=== PATIENT | male | born 1990 | race Caucasian/White ===

== ENCOUNTER 2017-05-10 07:45 | Inpatient (IN) | payer BC, OTHER ==
[~2017-05-10] VITALS: Ht 185.4 cm; Wt 89.4 kg
--- NOTE | 2017-05-10 20:55 | NUR ---
PRE - ADMISSION NOTE: Patient is a 26 year old male AOX4, presented to [facility] to detoxify from ETOH/Alcohol and Methamphetamine dependence. Patient appears anxious, nervous, tremors to touch with flushed face. Patient is cooperative, speech is clear and audible. Patient reports NKA. Patient's vital signs are as follows: BP 122/76, HR 88, T: 97.8, RA SPO2 97%., pain level "0/10". Patient denies any pain at this time. Patient instructed on unit protocol of vitals Q4H and COWS/CIWA assessments. Patient verbalized understanding and agreement. Patient also instructed on policy regarding destruction of any controlled substances/prescriptions brought to facility, and handling of all medications. Patient verbalized understanding and agreement. Will complete admission assessment when patient is brought up to unit.
[2017-05-10] MEDS ORDERED: MIRALAX 17 GM POWD.PACK PO PRN (21:00)
[2017-05-10] MEDS ORDERED: LOPERAMIDE HCL 2 MG CAPSULE PO PRN ×2 (21:00)
[2017-05-10] MEDS ORDERED: THIAMINE HCL 200 MG/2 ML VIAL IM ONE (21:00)
[2017-05-10] MEDS ORDERED: NICOTINE 14 MG/24HR PATCH TD PRN (21:00)
[2017-05-10] MEDS ORDERED: ACETAMINOPHEN 325 MG TABLET PO PRN (21:00)
[2017-05-10] MEDS ORDERED: LORAZEPAM 1 MG TABLET PO PRN ×2 (21:00)
[2017-05-10] MEDS ORDERED: CLONIDINE HCL 0.1 MG TABLET PO PRN (21:00)
[2017-05-10] MEDS ORDERED: IBUPROFEN 400 MG TABLET PO PRN (21:00)
[2017-05-10] MEDS ORDERED: LORAZEPAM 2 MG/1 ML VIAL IM PRN (21:00)
[2017-05-10] MEDS ORDERED: ONDANSETRON ODT 4 MG TAB.RAPDIS SL PRN (21:00)
[2017-05-10] MEDS ORDERED: ONDANSETRON 4 MG/2 ML VIAL IM PRN (21:00)
[2017-05-10] MEDS ORDERED: NICOTINE POLACRILEX 4 MG GUM-PK OF TEN BC PRN (21:00)
[2017-05-10] MEDS ORDERED: MAG HYDROX/AL HYDROX/SIMETH 30 ML LIQUID UDC PO PRN (21:00)
[2017-05-10 21:05] VITALS: BP 122/76
--- NOTE | 2017-05-10 21:05 | NUR ---
ADMISSION NOTE New patient is a 26 year old male admitted to [facility] on 05/10/2017 @2105 for medically supervised withdrawal from Alcohol and Methamphetamine. Patient reports NKA. Patient is on Full Code, Regular diet, is on Fall and Seizures precautions. The patient denies a history of withdrawal-induced seizures. Past Medical History: 1. Anxiety disorder, 3. Depressive disorder, 4. Bipolar disorder, 5. Substance Use disorder, 6. Chronic tobacco use Patient denies Past Surgical History. PCP - patient can't recalled the name. Pre-assessment completed in intake. Patient provided UDS test at this time. Patient is ambulatory with steady gate, stable, A&Ox4, speech is clear. Height: 63 in, Weight: 125 lbs by standing scale. VS upon admission: BP 122/76, HR 88, T: 97.8, RA SPO2 97%., pain level "0/10". Patient denies any pain at this time. CIWA 8. The patient presented with anxiety, agitation, nervousness, tremors that can be felt, diaphoresis, restless legs, and fatigue. Patient denies SI/HI. Upon initial assessment respirations unlabored and even. Patient denies SOB and chest pain. Lungs Sounds are clear bilaterally. Bowel Sounds active in all x4 quadrants. Abdomen is soft and non-tender. PERRLA, brisk capillary refill, natural resources extension educator equal and strong. Skin is intact, warm and dry to touch. Patient reports the following Substances Use: 1 ."Alcohol PO "since 03/2017. Patient reports "consuming Vodka 375 ml every day". Last used "Vodka 375 ml on 05/09/2017". 2."Methamphetamine smoke "1,5 grams every day since 03/2017". Last used"1,5 grams on 05/10/2017". He has been to treatment program in the past at "[facility] on 01/2017". Patient reports the longest being "6 months of sobriety in 2009". Patient reports "Tobacco use since 2006 every day 1/2 pack = 10 cigarettes". Patient brought medications. Reconciliation Medications done. Patient oriented to his room, Nurse Call Light, and [facility] Floor. Encouraged fluids as tolerated. Encouraged to attend activities groups. All needs met. Safety measures on place. Call light within reach, bed in lowest position and locked, padded rails up bilaterally rails up bilaterally. Will continue to monitor closely. Addendum: 05/11/17 at 0624 by ABEBA REYNA RN Height: 73 in, Weight: 197 lbs by standing scale.
[2017-05-10] MEDS ORDERED: SIMV20TA6 PO ×2 (21:12→21:20)
[2017-05-10] MEDS ORDERED: GABA600T2 PO (21:14)
[2017-05-10] MEDS ORDERED: BUPR300T54 PO (21:19)
[2017-05-10 21:26] LABS: *AMPHETAMINE, URINE POSITIVE (NEGATIVE); *BARBITURATE, URINE NEGATIVE (NEGATIVE); *CANNABINOID, URINE NEGATIVE (NEGATIVE); *COCCAINE, URINE NEGATIVE (NEGATIVE); *OPIATE, URINE NEGATIVE (NEGATIVE); *PHENCYCLIDINE SCREEN,URINE NEGATIVE (NEGATIVE)
[2017-05-10 21:55] LABS: ALANINE AMINOTRANSFERASE 51 U/L (16-63); ALKALINE PHOSPHATASE 62 U/L (50-136); AMYLASE 21 U/L (25-115); ASPARTATE AMINOTRANSFERASE 43 U/L (15-37); BILIRUBIN,TOTAL 1.3 mg/dL (0.2-1.0); CARBON DIOXIDE 26 mmol/L (21-32); CHLORIDE 102 mmol/L (98-107); GLUCOSE 83 mg/dL (74-106); MAGNESIUM 1.9 mg/dL (1.8-2.4); POTASSIUM 3.8 mmol/L (3.5-5.1); TOTAL PROTEIN, SERUM 7.9 g/dL (6.4-8.2); UREA NITROGEN, BLOOD 13 mg/dL (7-18)
[2017-05-10 21:58] LABS: BASOPHILS # (AUTO) 0.1 K/uL (0.0-8.0); BASOPHILS % (AUTO) 0.9 % (0.0-2.0); EOSINOPHILS # (AUTO) 0.1 K/uL (0.0-0.7); EOSINOPHILS % (AUTO) 1.4 % (0.0-7.0); HEMATOCRIT 49.6 % (40-50); HEMOGLOBIN 16.6 G/DL (14.0-18.0); LYMPHOCYTES # (AUTO) 2.4 K/UL (0.8-4.8); LYMPHOCYTES % (AUTO) 30.8 % (20.5-51.5); MEAN CORPUSCULAR HEMOGLOBIN 28.1 UUG (27.0-31.0); MEAN CORPUSCULAR HGB CONC 33 g/dL (32.0-37.0); MEAN CORPUSCULAR VOLUME 84.2 FL (82.0-92.0); MONOCYTES # (AUTO) 0.5 K/UL (0.1-1.30); MONOCYTES % (AUTO) 6.6 % (0.0-11.0); NEUTROPHILS # (AUTO) 4.6 K/UL (1.8-8.9); NEUTROPHILS % (AUTO) 60.3 % (38.5-71.5); PLATELET COUNT (AUTO) 238 K/UL (150-450); RED BLOOD CELL COUNT(AUTO) 5.89 MIL/UL (4.7-6.1); WHITE BLOOD COUNT (AUTO) 7.7 K/UL (4.0-11.2)
--- NOTE | 2017-05-10 22:06 | NUR ---
ONE TIME ATIVAN 2 MG 2 TAB PO ADMINISTRATED PRN Ativan 2 mg 2 tab PO for CIWA 8 administrated as ordered. Patient tolerated well. All needs met. Safety measures on place. Call light within reach, bed in lowest position and locked, padded rails up bilaterally rails up bilaterally. Will continue to monitor closely.
[2017-05-10] MEDS ORDERED: THIAMINE HCL 200 MG/2 ML VIAL ONE (22:15)
[2017-05-10] MEDS ORDERED: LORAZEPAM 1 MG TABLET ONE (22:15)
[2017-05-10] MEDS ORDERED: LORAZEPAM 1 MG TABLET PO SCH (22:30)
[2017-05-10 22:38] LABS: ETHANOL < 3 MG/DL (0-0)
--- NOTE | 2017-05-10 23:06 | NUR ---
RE-ASSESSMENT Patient is sleeping. Respirations even and unlabored. RR:15. Ativan 2 mg 2 tab. PO was effective. All needs met. Safety measures on place: Call light within reach, bed in lowest position and locked, padded rails up bilaterally rails up bilaterally. Will continue to monitor closely.
[2017-05-11] VITALS: BP_SYST 138; BP_SYST 90; BP_DIAS 55; BP_DIAS 79
[2017-05-11 04:42] VITALS: BP 112/58
--- NOTE | 2017-05-11 06:50 | NUR ---
END OF SHIFT NOTE: Patient is a 26 year old male admitted to [facility] on 05/10/2017 @2105 for medically supervised withdrawal from Alcohol and Methamphetamine. Patient remains compliant with treatment, medications, and diet regime. Patient reports NKA. Patient is on Full Code, Regular diet, Fall and Seizures precautions. The patient denies a history of withdrawal-induced seizures. PMH: Anxiety, Depression, Bipolar disorder, Substance Use disorder, Chronic tobacco use. Patient denies Past Surgical History. Patient remains compliant with treatment, medications, and diet regime. Patient reports Substance use History: Patient reports the following Substances Use: "Alcohol PO " consuming Vodka 375 ml every day since 03/2017. Last used "Vodka 375 ml on 05/09/2017; Methamphetamine smoke "1,5 grams every day since 03/2017". Last used"1,5 grams on 05/10/2017. Tobacco use every day 1/2 pack = 10 cigarettes since 2006 ". Treatment program in the past at "[facility], 01/2017. Relapsed on 03/2017. Last CIWA 4 @0400. COWS/CIWA taken when patient's awake during night. Last VS @0400: T: 98.0, BP: 112/58, HR: 75, RR:16, RA O2Sat: 100%, pain level: "0/10". Patient denies SI/HI. Respirations unlabored and even. Skin is intact, warm, and dry to touch. Patient slept 8 hours, intake 300 ml, voided x2. No PRN Medications administrated during lieutenant shift supervisor. Encouraged fluids intake as tolerated. Encouraged to attend groups activities. All needs met. Safety measures on place: Call light within reach, bed in lowest position and locked, padded rails up bilaterally. Patient endorsed to day shift nurse. Report given.
--- NOTE | 2017-05-11 07:00 | NUR ---
Start of Shift Notes: Received report from night nurse. Patient is in his room. Alert and verbally responsive. Oriented x 4. Able to make his needs known. Respirations even and unlabored. No SOB noted. Skin warm and dry to touch. Abdomen soft and non-distended. BS (+) in all 4 quadrants. No complains of N/V/D or constipation noted. Bladder non-distended. No complains of dysuria noted. Ambulatory ad kris with steady gait. Patient is a 26 year old male admitted for ETOH and methamphetamine dependence who was placed on PRNs at this time. Has past medical hx of anxiety, and depression. Prior to admission, patient was using 375cc of Vodka daily and 1.5 grams of methamphetamine daily. NKA. FULL CODE. Regular diet. On fall and seizure precautions. Educated patient on the current plan of care for the day and the medication regimen. Patient verbalized good understanding. Encouraged oral fluid intake and encouraged group participation to learn new skills to prevent relapse. Will continue to monitor closely.
[2017-05-11 08:00] VITALS: BP 104/65
[2017-05-11] MEDS: FOLIC ACID 1 MG TABLET PO SCH (08:39)
[2017-05-11] MEDS: THIAMINE HCL 100 MG TABLET PO SCH (08:39)
[2017-05-11] MEDS: MULTIVITAMINS,THERAPEUTIC TABLET PO SCH (08:39)
[2017-05-11] MEDS: GABAPENTIN 300 MG CAPSULE PO SCH ×3 (08:39→20:58)
[2017-05-11] MEDS: LORAZEPAM 1 MG TABLET PO SCH ×3 (08:40→20:58)
[2017-05-11] MEDS ORDERED: TUBERCULIN,PURIF.PROT.DERIV. 5 TU/0.1 ML TEST ID ONE (09:00)
[2017-05-11 12:00] VITALS: BP 128/71
--- NOTE | 2017-05-11 12:00 | NUR ---
NYLA Deferred: Patient is seen laying in bed with eyes closed. Breathing even and unlabored. VS stable. Refuses to be woken up. NYLA deferred at this time. Addendum: 05/11/17 at 1337 by GENESIS ESCAMILLA LVN Amended: Links added.
--- NOTE | 2017-05-11 15:59 | NUR ---
Ativan 2mg/Gabapentin 300 mg PO held: Seen patient laying in bed. Eyes closed. Appears to be sound asleep. Easily arousable. RR 16. Breathing even and unlabored. No SOB noted. Refused to be woken up at this time. Ativan 2 mg PO/Gabapentin 300 mg PO held at this time.
[2017-05-11 16:00] VITALS: BP 111/69
--- NOTE | 2017-05-11 16:00 | NUR ---
NYLA Deferred: Patient is sound asleep but arousable. Breathing even and unlabored. RR 14. CIWA deferred at this time. Addendum: 05/11/17 at 1617 by GENESIS ESCAMILLA LVN Amended: Links added.
--- NOTE | 2017-05-11 18:45 | NUR ---
End of Shift Notes: Patient initiated 5-day Ativan taper as ordered. No adverse reactions noted. VS monitored closely. No significant abnormalities noted. Withdrawal symptoms were closely monitored. Initial CIWA 8, patient presented with anxiety, agitation, tremors, sweats, fatigue and facial flushing. Per patient, Ativan has been effective in reducing his withdrawal symptoms. Patient unable to participate in group and activities due to his withdrawal symptoms. Patient has been asleep for most of the shift. Ativan and Gabapentin at 1500 held due to sedation. CIWA at 1200 and 1600 deferred due to patient is sleeping and refuses to be woken up. All needs met and attended. Will continue to monitor closely.
--- NOTE | 2017-05-11 18:45 | NUR ---
START OF SHIFT NOTE: Patient is a 26 year old male admitted to [facility] on 05/10/2017 @2105 for medically supervised withdrawal from Alcohol and Methamphetamine. Patient continues ordered 5 Day Ativan Taper which tolerated well without ASE. Patient remains compliant with treatment, medications, and diet regime. Patient reports NKA. Patient is on Full Code, Regular diet, is on Fall and Seizures precautions. The patient denies a history of withdrawal-induced seizures. PMH: Anxiety, Depression, Bipolar disorder, Substance Use disorder, Chronic tobacco use. Patient denies Past Surgical History. Patient reports Substance use History: Patient reports the following Substances Use: "Alcohol PO " consuming Vodka 375 ml every day since 03/2017. Last used "Vodka 375 ml on 05/09/2017; Methamphetamine smoke "1,5 grams every day since 03/2017". Last used"1,5 grams on 05/10/2017. Tobacco use every day 1/2 pack = 10 cigarettes since 2006 ". Treatment program in the past at "[facility], 01/2017. Relapsed on 03/2017. Upon endorsement, patient is in his room. Patient is alert and oriented x4 with stable gait. Speech is clear and soft. VSWNL, CIWA 6. Respirations are even and unlabored. Lungs Sounds are clear throughout. Patient denies cough, chest pain, and SOB. Abdomen is soft, non-tender. Bowel Sounds are active in all four quadrants. Skin is intact, warm and dry to touch. Patient denies SI/HI. Encouraged to fluids intake as tolerated. Encouraged to attend groups activities. All needs met. Safety measures in place: Call light within reach, bed is locked and in the lowest position, padded bed rails up bilaterally. Patient endorsed by outgoing day shift nurse. Report received.
[2017-05-11 20:00] VITALS: BP 103/60
[2017-05-11] MEDS: SIMVASTATIN PO SCH (20:58)
[2017-05-11] MEDS: [UNRECOGNIZED DRUG - OTHER] PO SCH (20:58)
[2017-05-12] VITALS: BP 115/65
[2017-05-12 04:00] VITALS: BP 128/70
--- NOTE | 2017-05-12 07:07 | NUR ---
END OF SHIFT NOTE: Patient is a 26 year old male admitted to [facility] on 05/10/2017 @2105 for medically supervised withdrawal from Alcohol and Methamphetamine. Patient remains compliant with treatment, medications, and diet regime. Patient reports NKA. Patient is on Full Code, Regular diet, is on Fall and Seizures precautions. The patient denies a history of withdrawal-induced seizures. PMH: Anxiety, Depression, Bipolar disorder, Substance Use disorder, Chronic tobacco use. Patient denies Past Surgical History. Patient remains compliant with treatment, medications, and diet regime. Patient reports Substance use History: Patient reports the following Substances Use: "Alcohol PO " consuming Vodka 375 ml every day since 03/2017. Last used "Vodka 375 ml on 05/09/2017; Methamphetamine smoke "1,5 grams every day since 03/2017". Last used"1,5 grams on 05/10/2017. Tobacco use every day 1/2 pack = 10 cigarettes since 2006 ". Treatment program in the past at "[facility], 01/2017. Relapsed on 03/2017. Last CIWA 4 @0400. COWS/CIWA taken when patient's awake during night. Last VS @0400: T: 98.0, BP: 128/70, HR: 73, RR:17, RA O2Sat: 100%, pain level: "0/10". Patient denies SI/HI. Respirations unlabored and even. Skin is intact, warm, and dry to touch. Patient slept 11 hours, intake 237 ml, voided x1. No PRN Medications administrated during reproduction order processor. Encouraged fluids intake as tolerated. Encouraged to attend groups activities. All needs met. Safety measures on place: Call light within reach, bed in lowest position and locked, padded rails up bilaterally. Patient endorsed to day shift nurse. Report given.
--- NOTE | 2017-05-12 07:08 | NUR ---
Start of Shift Notes: Received report from night nurse. Patient is in his room. Alert and verbally responsive. Oriented x 4. Able to make his needs known. Respirations even and unlabored. No SOB noted. Skin warm and dry to touch. Abdomen soft and non-distended. BS (+) in all 4 quadrants. No complains of N/V/D or constipation noted. Bladder non-distended. No complains of dysuria noted. Ambulatory ad kris with steady gait. Patient is a 26 year old male admitted for ETOH and methamphetamine dependence who was placed on 5-day Ativan taper as ordered. Has past medical hx of anxiety, and depression. Prior to admission, patient was using 375cc of Vodka daily and 1.5 grams of methamphetamine daily. NKA. FULL CODE. Regular diet. On fall and seizure precautions. Educated patient on the current plan of care for the day and the medication regimen. Patient verbalized good understanding. Encouraged oral fluid intake and encouraged group participation to learn new skills to prevent relapse. Will continue to monitor closely.
[2017-05-12 08:00] VITALS: BP 133/75
[2017-05-12] MEDS: LORAZEPAM 1 MG TABLET PO SCH ×3 (08:44→16:10)
[2017-05-12] MEDS: GABAPENTIN 300 MG CAPSULE PO SCH ×3 (08:44→21:17)
[2017-05-12] MEDS: MULTIVITAMINS,THERAPEUTIC TABLET PO SCH (08:44)
[2017-05-12] MEDS: buPROPion XL 150 MG TAB.SR.24H PO SCH (08:44)
[2017-05-12] MEDS: THIAMINE HCL 100 MG TABLET PO SCH (08:45)
[2017-05-12] MEDS: FOLIC ACID 1 MG TABLET PO SCH (08:45)
[2017-05-12] MEDS ORDERED: Medication Not On Formulary EA (Bupropion Hcl (Bupropion Xl) 1 TAB) PO SCH (09:00)
[2017-05-12 12:00] VITALS: BP 127/67
[2017-05-12 15:11] LABS: HEPATITIS B SURFACE AG Negative (Negative)
[2017-05-12 16:00] VITALS: BP 98/70
--- NOTE | 2017-05-12 19:05 | NUR ---
End of Shift Notes: Patient continues to be on 5-day Ativan taper as ordered. No adverse reactions noted. VS monitored closely. No significant abnormalities noted. Withdrawal symptoms were closely monitored. Initial CIWA 4, patient presented with anxiety, facial flushing, sweats, and mild tremors. Last CIWA 2. Per patient, Ativan has been effective in reducing his withdrawal symptoms. Patient unable to participate in group and activities due to his withdrawal symptoms. Patient has been asleep for most of the shift. All needs met and attended. Will continue to monitor closely.
--- NOTE | 2017-05-12 19:30 | NUR ---
START OF SHIFT Pt is a 26 y/o male admitted on 05/10/17 for ETOH and meth dependence. Pt was dependent on 375 ml of vodka daily and meth 1.5 grams daily since March. Pt is full code, NKA, regular, fall/seizure precautions. No reported seizure history. Pt reports PMH of anxiety and depression. Pt is on a 5 day Ativan taper started on 05/11/17, tolerating well. Upon assessment pt is laying in bed sleeping. Upon awakening pt presents with anxiety, sweats, irritability, fatigue, restlessness, occasional sense of panic, chills, decreased appetite, dysphoria and anhedonia. Respirations 16, even and unlabored. Denies N/V/D. Denies chest pain or SOB. Medications due. Safety measures in place. Call light within reach. Will continue to monitor.
[2017-05-12 20:00] VITALS: BP 106/55
[2017-05-12] MEDS ORDERED: LORAZEPAM 1 MG TABLET PO SCH (21:00)
[2017-05-12] MEDS: [UNRECOGNIZED DRUG - OTHER] PO SCH (21:17)
[2017-05-12] MEDS: SIMVASTATIN PO SCH (21:17)
[2017-05-13] VITALS: BP 109/61
--- NOTE | 2017-05-13 | NUR ---
CIWA DEFERRED Pt is laying in bed with eyes closed, CIWA deferred, to be assessed when pt is fully awake per orders. Respirations 16, even and unlabored. Safety measures in place. Call light within reach. Will continue to monitor.
[2017-05-13 04:00] VITALS: BP 119/57
--- NOTE | 2017-05-13 07:28 | NUR ---
END OF SHIFT Pt is a 26 y/o male admitted on 05/10/17 for ETOH and meth dependence. Pt was dependent on 375 ml of vodka daily and meth 1.5 grams daily since March. Pt is full code, NKA, regular, fall/seizure precautions. No reported seizure history. Pt reports PMH of anxiety and depression. Pt is on a 5 day Ativan taper started on 05/11/17, tolerating well. Pt presented with anxiety, sweats, irritability, fatigue, restlessness, occasional sense of panic, chills, decreased appetite, dysphoria and anhedonia. Scheduled medications administered, effective in S/S of withdrawal as verbalized by pt. No PRNs administered. Last CIWA 5. Pt slept 11 hours. Intake 750 ml, void x 1, stool x 1. Safety measures in place. Call light within reach. Pts needs have been met. Endorsed to day shift nurse.
--- NOTE | 2017-05-13 07:45 | NUR ---
START OF SHIFT Rcvd endorsement from ongoing nurse, client is in room, he is a/o x 4, he presents with depressed mood, flat affect. He reports abdominal cramps, restless legs, and fatigue. He denies any N/V/D. He denies any SI/HI. Encourage client to attend to group therapy for skills to maintain sober. Encourage client to increase PO fluid intake as tolerated to facilitate detox. Client is a 26 y/o male, admitted to [facility] for withdrawal from alcohol. He is on 5 day Ativan taper, tolerating well (day 3). Last CIWA 5 @ 1999. Aishwarya had an uneventful night, he slept 11 hrs. He denies a hx of withdrawal-induced seizures, Client reports NKA , he is full code, regular diet. Side rails x 2 up/padded for seizure precautions. Call light within reach.
[2017-05-13 08:00] VITALS: BP 105/63
--- NOTE | 2017-05-13 09:00 | NUR ---
Zero induration noted at TB test site of R forearm.
[2017-05-13] MEDS: MULTIVITAMINS,THERAPEUTIC TABLET PO SCH (09:33)
[2017-05-13] MEDS: LORAZEPAM 1 MG TABLET PO SCH ×3 (09:33→21:00)
[2017-05-13] MEDS: buPROPion XL 150 MG TAB.SR.24H PO SCH (09:33)
[2017-05-13] MEDS: GABAPENTIN 300 MG CAPSULE PO SCH ×3 (09:33→21:00)
[2017-05-13] MEDS: THIAMINE HCL 100 MG TABLET PO SCH (09:33)
[2017-05-13] MEDS: FOLIC ACID 1 MG TABLET PO SCH (09:33)
[2017-05-13 12:47] VITALS: BP 123/65
--- NOTE | 2017-05-13 14:59 | NUR ---
Client refused Ativan 1mg taper stating, "I makes me feel groggy." Dr. Nash notified.
[2017-05-13 16:51] VITALS: BP 115/70
--- NOTE | 2017-05-13 19:15 | NUR ---
END OF SHIFT Client is a 26 y/o male, admitted to [facility] for withdrawal from alcohol. He is on 5 day Ativan taper, tolerating well (day 3). Last CIWA 4 @ 1600. Client refused Ativan 1mg taper stating, "I makes me feel groggy." Dr. Nash notified. Client is not compliant with group therapy. Consumes 50-75% of meals, adequate PO fluid intake 2400mL, void x 3. He denies a hx of withdrawal-induced seizures, Client reports NKA , he is full code, regular diet. Side rails x 2 up/padded for seizure precautions. Call light within reach.
--- NOTE | 2017-05-13 19:30 | NUR ---
START OF SHIFT Pt is a 26 y/o male admitted on 05/10/17 for ETOH and meth dependence. Pt was dependent on 375 ml of vodka daily and meth 1.5 grams daily since March. Pt is full code, NKA, regular, fall/seizure precautions. No reported seizure history. Pt reports PMH of anxiety and depression. Pt is on a 5 day Ativan taper started on 05/11/17, tolerating well. Upon assessment pt is laying in bed sleeping. Upon awakening pt presents with anxiety, sweats, irritability, fatigue, occasional sense of panic, chills, decreased appetite, dysphoria and anhedonia. Respirations 16, even and unlabored. Denies N/V/D. Denies chest pain or SOB. Medications due. Safety measures in place. Call light within reach. Will continue to monitor.
[2017-05-13 20:00] VITALS: BP 122/78
[2017-05-13] MEDS: SIMVASTATIN PO SCH (20:27)
[2017-05-13] MEDS: [UNRECOGNIZED DRUG - OTHER] PO SCH (20:27)
--- NOTE | 2017-05-13 21:00 | NUR ---
SCHEDULED ATIVAN 1 MG AND NEURONTIN 300 MG NON-ADMIN Pt refused scheduled Ativan and neurontin. CIWA 7. Safety measures in place. Call light within reach. Will continue to monitor.
[2017-05-13] MEDS: diphenhydrAMINE 50 MG CAPSULE PO PRN (22:47)
--- NOTE | 2017-05-13 22:47 | NUR ---
PRN BENADRYL ADMINISTRATION Pt requests sleep aid. Safety measures in place. Call light within reach. Will continue to monitor.
--- NOTE | 2017-05-13 23:47 | NUR ---
PRN BENADRYL REASSESSMENT Pt is laying in bed with eyes closed. Respirations 16, even and unlabored. Safety measures in place. Call light within reach. Will continue to monitor.
--- NOTE | 2017-05-14 | NUR ---
CIWA DEFERRED AND VITALS REFUSED Pt is laying in bed with eyes closed, CIWA deferred, to be assessed when pt is fully awake per orders. Pt refused vitals. Respirations 16, even and unlabored. Safety measures in place. Call light within reach. Will continue to monitor.
--- NOTE | 2017-05-14 07:14 | NUR ---
END OF SHIFT Pt is a 26 y/o male admitted on 05/10/17 for ETOH and meth dependence. Pt was dependent on 375 ml of vodka daily and meth 1.5 grams daily since March. Pt is full code, NKA, regular, fall/seizure precautions. No reported seizure history. Pt reports PMH of anxiety and depression. Pt is on a 5 day Ativan taper started on 05/11/17, tolerating well. Pt presented with anxiety, sweats, irritability, fatigue, occasional sense of panic, chills, decreased appetite, dysphoria and anhedonia. Scheduled medication Simvastatin and PRN Benadryl administered, effective in S/S of withdrawal as verbalized by pt. Scheduled Ativan 1 mg and gabapentin 300 mg non-administered d/t pt denying medications. Last CIWA 7 at 1999. Slept 7 hours. Intake 1095 ml, void x 2, stool x 1. Safety measures in place. Call light within reach. Pts needs have been met. Endorsed to day shift nurse.
--- NOTE | 2017-05-14 08:01 | NUR ---
START OF SHIFT NOTE: Received report from night supervisor nurse. Pt is a 26 y/o male admitted on 05/10/17 for ETOH and meth dependence. Pt is on a 5 day Ativan taper, but has been refusing Ativan. Pt is alert and oriented X4. Color good, skin warm and dry. Respirations even and unlabored. Safety precautions observed. Call light within reach.
[2017-05-14] MEDS: LORAZEPAM 1 MG TABLET PO SCH ×2 (09:00→21:00)
--- NOTE | 2017-05-14 09:00 | NUR ---
VSS CIWA 0
[2017-05-14 09:14] VITALS: BP 122/78
[2017-05-14] MEDS: FOLIC ACID 1 MG TABLET PO SCH (09:22)
[2017-05-14] MEDS: buPROPion XL 150 MG TAB.SR.24H PO SCH (09:22)
[2017-05-14] MEDS: GABAPENTIN 300 MG CAPSULE PO SCH ×3 (09:22→21:21)
[2017-05-14] MEDS: MULTIVITAMINS,THERAPEUTIC TABLET PO SCH (09:22)
[2017-05-14] MEDS: THIAMINE HCL 100 MG TABLET PO SCH (09:22)
[2017-05-14 12:44] VITALS: BP 142/78
[2017-05-14] MEDS ORDERED: DIPH50CA37 PO (12:49)
[2017-05-14] MEDS ORDERED: GABA-534 PO (12:49)
[2017-05-14] MEDS ORDERED: SIMV20TA6 PO (12:49)
[2017-05-14 17:42] VITALS: BP 142/78
--- NOTE | 2017-05-14 18:47 | NUR ---
END OF SHIFT NOTE: Report given to restaurant shift leader nurse . Pt is a 26 y/o male admitted on 05/10/17 for ETOH and meth dependence. Pt is on a 5 day Ativan taper, but has been refusing Ativan. Pt is alert and oriented X4. Color good, skin warm and dry. Respirations even and unlabored. Vital signs have remained stable throughout shift . Last CIWA 0. Safety precautions observed. Call light within reach.
--- NOTE | 2017-05-14 19:11 | NUR ---
Start of shift Patient is a 26 year old male admitted to [facility] on 05-10-17 for Alcohol detox, and methamphetamine abuse. Patient was placed on an ativan taper. Patient with last CIWA 0. He is refusing ativan. is aware. Patient has Past psychiatric history of Anxiety and depression. He denies SI or HI. Patient on fall and seizure precautions. Tolerating diet and fluids. He has NKA, is a full code and on a regular diet. Safety measures in place. Bed locked and in lowest position with 2 side rails up for safety. Call light within reach. Report received from AM nurse.
[2017-05-14 20:00] VITALS: BP 135/84
[2017-05-14] MEDS: [UNRECOGNIZED DRUG - OTHER] PO SCH (21:21)
[2017-05-14] MEDS: diphenhydrAMINE 50 MG CAPSULE PO PRN (21:21)
[2017-05-14] MEDS: SIMVASTATIN PO SCH (21:21)
--- NOTE | 2017-05-14 21:21 | NUR ---
PRN MEDICATION PATIENT RECEIVED BENADRYL 50 MG FOR C/O INABILITY TO SLEEP. EFFECT PENDING
--- NOTE | 2017-05-14 22:21 | NUR ---
REASSESSMENT OF PATIENT PATIENT REASSESSED ONE HOUR AFTER PRN BENADRYL ADMINISTERED FOR SLEEP. PATIENT AWAKE BUT RESTING COMFORTABLY IN BED. STATES MEDICATION IS WORKING EFFECTIVENESS NOTED
[2017-05-15] VITALS: BP 137/75
--- NOTE | 2017-05-15 04:07 | NUR ---
CIWA DEFERRED/ VITAL SIGNS REFUSED PATIENT REFUSED 0400 VITAL SIGNS CIWA DEFERRED FOR SLEEP
--- NOTE | 2017-05-15 06:49 | NUR ---
END OF SHIFT Pt is a 26 y/o male admitted on 05/10/17 for ETOH and meth dependence. Pt is full code, NKA, regular diet, fall/seizure precautions. No reported seizure history. Pt reports PMH of anxiety and depression. Pt refused Ativan dose at 2100.Patient has continued to refuse Ativan doses. PRN Benadryl administered for sleeplessness with effect. VS at 2000 BP 135/84, P 94, R 16, SPO2 97% ON RA, T 98.0. CIWA 1, VS AT 0000 BP 137/75, P 84, R 20, SPO2 98% ON RA T 98.0 CIWA 1. Slept 7 hours. Intake 1000 ml, void x 3. Safety measures in place. Call light within reach. Report given to AM nurse.
--- NOTE | 2017-05-15 07:00 | NUR ---
Start of Shift Notes: Received report from night nurse. Patient is in his room. Alert and verbally responsive. Oriented x 4. Able to make his needs known. Respirations even and unlabored. No SOB noted. Skin warm and dry to touch. Abdomen soft and non-distended. BS (+) in all 4 quadrants. No complains of N/V/D or constipation noted. Bladder non-distended. No complains of dysuria noted. Ambulatory ad kris with steady gait. Patient is a 26 year old male admitted for ETOH and methamphetamine dependence who was placed on PRNs at this time. Has past medical hx of anxiety, and depression. Prior to admission, patient was using 375cc of Vodka daily and 1.5 grams of methamphetamine daily. NKA. FULL CODE. Regular diet. On fall and seizure precautions. Educated patient on the discharge process. Patient verbalized good understanding. Encouraged oral fluid intake and encouraged group participation to learn new skills to prevent relapse. Will continue to monitor closely.
[2017-05-15 08:00] VITALS: BP 134/67
[2017-05-15] MEDS: MULTIVITAMINS,THERAPEUTIC TABLET PO SCH (08:11)
[2017-05-15] MEDS: buPROPion XL 150 MG TAB.SR.24H PO SCH (08:11)
[2017-05-15] MEDS: FOLIC ACID 1 MG TABLET PO SCH (08:11)
[2017-05-15] MEDS: THIAMINE HCL 100 MG TABLET PO SCH (08:11)
[2017-05-15] MEDS: GABAPENTIN 300 MG CAPSULE PO SCH (08:11)
[2017-05-15] MEDS ORDERED: LORAZEPAM 1 MG TABLET PO SCH (09:00)
--- NOTE | 2017-05-15 09:00 | NUR ---
Ativan at 0900 not administered: Patient is discharging today. Ativan at 0900 not administered per unit protocol. CIWA 0.
--- NOTE | 2017-05-15 09:13 | NUR ---
DISCHARGE NOTE Pt is in stable condition. Vitals WNL, Pt alert and oriented x4, skin intact, Pt denies any SI/HI. All discharge paperwork completed dated and signed. Pt educated about discharge instructions, what to do after discharge when to contact MD as well as the s/s reportable to MD, pt verbalized understanding Pts last CIWA was a 0 taken at 0800. Pt was discharged from [facility] at 0913. pt left the building with all of his belongings and medications. MD has been contacted and aware of pts d/c.
== END 2017-05-15 09:13 | disposition other institution (70) | DRG 895 ==
LOC: SRC 20:00
PROVIDERS: ADMIT Internal Medicine; ATTEND Internal Medicine
PROC: HZ2ZZZZ Detoxification Services for Substance Abuse Treatment (ICD-10-PCS; principal; 2017-05-10)
PROC: HZ31ZZZ Individual Counseling for Substance Abuse Treatment, Behavioral (ICD-10-PCS; 2017-05-11)
DX: F10.230 Alcohol dependence with withdrawal, uncomplicated (principal); K70.10 Alcoholic hepatitis without ascites; E78.5 Hyperlipidemia, unspecified; F15.23 Other stimulant dependence with withdrawal; Y90.0 Blood alcohol level of less than 20 mg/100 ml; F41.9 Anxiety disorder, unspecified; Z59.1 Inadequate housing; F32.9 Major depressive disorder, single episode, unspecified; F17.210 Nicotine dependence, cigarettes, uncomplicated
CPT/HCPCS: 36415; 80307; 80324; 83735; 85025; 86580; 86592; 86705; 86803; 87340; 87806; A4663; G0480; J3411; Q0163